=== PATIENT | male | born 1980 | race Caucasian/White ===

== ENCOUNTER → 2021-07-10 | Outpatient (CLI) | payer BC ==
[~2021-07-10] MED LIST: NORCO 5-325 TA1 EACH PO; TORADOL 10 MG T10 MG PO; ZOFRAN ODT 4 MG4 MG SL
== END ==
LOC: KOH-I 13:42
DX: M41.85 Other forms of scoliosis, thoracolumbar region (principal); E66.9 Obesity, unspecified; G62.9 Polyneuropathy, unspecified
CPT/HCPCS: 72080

== ENCOUNTER → 2021-10-30 | Outpatient (CLI) | payer BC, OTHER | LOC: KOH-I 10:24 | DX: Z85.47 Personal history of malignant neoplasm of testis (principal) | CPT/HCPCS: 71046 ==

== ENCOUNTER 2021-11-10 19:18 | Emergency (ER) | payer BC, OTHER ==
[2021-11-10] MEDS ORDERED: PERCOCET 5/325 T1 EA PO ×2 (23:39→23:40)
[2021-11-10] MEDS ORDERED: IBUPROFEN600 MG PO (23:40)
== END 2021-11-11 00:08 | disposition home or self-care (01) ==
LOC: ER1 19:18
DX: M54.50 Low back pain, unspecified (principal); F17.200 Nicotine dependence, unspecified, uncomplicated; Z85.47 Personal history of malignant neoplasm of testis
CPT/HCPCS: 72128; 72131; 99283